=== PATIENT | female | born 1965 | race Caucasian/White ===

== ENCOUNTER → 2024-04-28 10:13 | Outpatient (BNVA) | payer OTHER, SELFPAY | PROVIDERS: Visit Provider Nurse Practitioner | DX: M25.551 Pain in right hip (principal); M54.50 Low back pain, unspecified | CPT/HCPCS: 73502; 99204 ==

== ENCOUNTER → 2024-05-12 09:58 | Outpatient (BNVA) | payer OTHER, SELFPAY | PROVIDERS: Visit Provider Nurse Practitioner | DX: G57.01 Lesion of sciatic nerve, right lower limb; M54.50 Low back pain, unspecified; M79.606 Pain in leg, unspecified | CPT/HCPCS: 99213 ==